=== PATIENT | male | born 1970 | race Caucasian/White ===

== ENCOUNTER 2018-02-08 18:45 | Emergency (ER) | payer MEDICAID ==
[~2018-02-08] VITALS: Ht 177.8 cm; Wt 83.0 kg
[~2018-02-08 18:45] MED LIST: CITA-278 PO; CLA10T PO; DIPH-681 PO; FLUT16SP2 NS; HYDR-569 PO; HYDR20OI TP; IBUP-1051 PO; IBUP-1984 PO; LANS15CA10 PO; NORCO10T PO; OMEP20CA10 PO; PRED10TA PO; ZOLP5TAB8 PO
[2018-02-08 18:55] VITALS: BP 127/95
[2018-02-08] MEDS ORDERED: NAPR-56 PO (20:53)
[2018-02-08] MEDS ORDERED: ketorolac tromethamine 15mg/ml inj. IM ONE (20:55)
== END 2018-02-08 21:12 | disposition home or self-care (01) ==
LOC: ER 18:45
DX: M72.2 Plantar fascial fibromatosis (principal); K21.9 Gastro-esophageal reflux disease without esophagitis; Z86.19 Personal history of other infectious and parasitic diseases; Z90.49 Acquired absence of other specified parts of digestive tract; Z60.2 Problems related to living alone; Z56.0 Unemployment, unspecified; Z59.0 Homelessness; Z88.8 Allergy status to other drugs, medicaments and biological substances; Z79.899 Other long term (current) drug therapy
CPT/HCPCS: 96372; 99283; J1885

== ENCOUNTER 2018-02-16 14:19 | Emergency (ER) | payer MEDICAID ==
[~2018-02-16] VITALS: Ht 604 cm; Wt 84.0 kg
[~2018-02-16 14:19] MED LIST changes: +NAPR-56 PO
[2018-02-16] MEDS ORDERED: sucralfate 1gm/10ml UD suspension PO STA (14:24)
[2018-02-16] MEDS ORDERED: LIDOcaine Viscous 15ml cup PO ONE (14:25)
[2018-02-16] MEDS ORDERED: normal saline 1000ML IV soln IVB ONE (14:25)
[2018-02-16] MEDS ORDERED: mag hydrox/Alum hydrox/simeth 30ml oral suspension PO ONE (14:25)
[2018-02-16] MEDS ORDERED: ondansetron/PF 4mg/2ml inj IV ONE (14:25)
[2018-02-16 14:48] LABS: BASOPHILS # (AUTO) 0.1 X10'3 (0-0.2); BASOPHILS % (AUTO) 0.7 % (0-1); EOSINOPHILS # (AUTO) 0.3 X10'3 (0-0.9); EOSINOPHILS % (AUTO) 3.7 % (0-6); HEMATOCRIT 46.3 % (42.0-52.0); HEMOGLOBIN 15.4 g/dl (14.0-17.9); LYMPHOCYTES # (AUTO) 2.1 X10'3 (1.1-4.8); MEAN CORPUSCULAR HEMOGLOBIN 29.2 PG (27.0-31.0); MEAN CORPUSCULAR HGB CONC 33.3 % (33.0-36.5); MEAN CORPUSCULAR VOLUME 87.6 FL (78-98); MEAN PLATELET VOLUME 9.5 FL (7.4-10.4); MONOCYTES # (AUTO) 0.5 X10'3 (0-0.9); MONOCYTES % (AUTO) 6.6 % (2-12); NEUTROPHILS # (AUTO) 4.5 X10'3 (1.8-7.7); PLATELET COUNT 236 X10'3 (140-440); RED BLOOD COUNT 5.28 X10'6 (4.70-6.10); WHITE BLOOD COUNT 7.5 X10'3 (4.5-11.0)
[2018-02-16 14:58] LABS: ALANINE AMINOTRANSFERASE 40 U/L (12-78); ALBUMIN 3.6 G/DL (3.4-5.0); ALBUMIN/GLOBULIN RATIO 1.1 (1.1-1.5); ALKALINE PHOSPHATASE 91 IU/L (46-116); ANION GAP 8 (8-16); ASPARTATE AMINO TRANSFERASE 23 U/L (10-37); BILIRUBIN,TOTAL 0.2 MG/DL (0.1-1.0); BLOOD UREA NITROGEN 17 MG/DL (7-18); BUN/CREATININE RATIO 17.9 (5.4-32.0); CALCIUM 9.1 MG/DL (8.5-10.1); CHLORIDE 106 MMOL/L (99-107); CREATININE 0.95 MG/DL (0.60-1.10); GLUCOSE 117 MG/DL (70-104); POTASSIUM 3.7 MMOL/L (3.5-5.1); SODIUM 140 MMOL/L (135-145); eGFR 84 ML/MIN
[2018-02-16 15:01] LABS: LIPASE 330 U/L (73-393); TROPONIN I < 0.04 NG/ML (0.0-0.05)
[2018-02-16] MEDS ORDERED: SUCR1TAB34 PO (15:23)
[2018-02-16] MEDS ORDERED: ONDA4TAB6 PO (15:23)
[2018-02-16] MEDS ORDERED: proCHLORperazine 10 MG/2 ml inj IV ONE (15:30)
[2018-02-16 16:03] VITALS: BP 132/85
== END 2018-02-16 16:05 | disposition home or self-care (01) ==
LOC: ER 14:20
DX: R10.13 Epigastric pain (principal); R11.2 Nausea with vomiting, unspecified; K21.9 Gastro-esophageal reflux disease without esophagitis; Z59.0 Homelessness; Z56.0 Unemployment, unspecified; Z90.49 Acquired absence of other specified parts of digestive tract; Z79.899 Other long term (current) drug therapy; Z88.6 Allergy status to analgesic agent; Z88.8 Allergy status to other drugs, medicaments and biological substances
CPT/HCPCS: 36415; 71045; 80053; 83690; 84484; 85025; 93005; 96361; 96374; 96375; 99285; A6257; J0780; J2405; J7030

== ENCOUNTER 2019-03-26 16:58 | Emergency (ER) | payer MEDICAID ==
[~2019-03-26] VITALS: Ht 177.8 cm; Wt 81.8 kg
[~2019-03-26 16:58] MED LIST changes: -CITA-278 PO; +CITA20TA28 PO; +HYDR-4383 PO; -HYDR-569 PO; -NAPR-56 PO; -OMEP20CA10 PO; +OMEP20CA11 PO; +ONDA4TAB6 PO; +SUCR1TAB34 PO
[2019-03-26] MEDS ORDERED: ondansetron/PF 4mg/2ml inj IV ONE (17:55)
[2019-03-26] MEDS ORDERED: normal saline 1000ML IV soln IVB ONE (17:55)
[2019-03-26 18:33] LABS: BASOPHILS # (AUTO) 0.1 X10'3 (0-0.2); BASOPHILS % (AUTO) 0.9 % (0-1); EOSINOPHILS # (AUTO) 0.2 X10'3 (0-0.9); HEMATOCRIT 42.1 % (42.0-52.0); HEMOGLOBIN 14.4 g/dl (14.0-17.9); LYMPHOCYTES # (AUTO) 2.6 X10'3 (1.1-4.8); LYMPHOCYTES % (AUTO) 30.8 % (21-51); MEAN CORPUSCULAR HEMOGLOBIN 29.2 PG (27.0-31.0); MEAN CORPUSCULAR HGB CONC 34.2 g/dL (33.0-36.5); MEAN CORPUSCULAR VOLUME 85.4 FL (78-98); MEAN PLATELET VOLUME 8.6 FL (7.4-10.4); MONOCYTES # (AUTO) 0.7 X10'3 (0-0.9); MONOCYTES % (AUTO) 8.1 % (2-12); NEUTROPHILS # (AUTO) 4.8 X10'3 (1.8-7.7); NEUTROPHILS % (AUTO) 57.2 % (42-75); PLATELET COUNT 269 X10'3 (140-440); RED BLOOD COUNT 4.93 X10'6 (4.70-6.10); RED CELL DISTRIBUTION WIDTH 13.2 % (11.5-14.5); WHITE BLOOD COUNT 8.3 X10'3 (4.5-11.0)
[2019-03-26 18:40] LABS: ALANINE AMINOTRANSFERASE 53 U/L (12-78); ALBUMIN 4.1 G/DL (3.4-5.0); ALBUMIN/GLOBULIN RATIO 1.2 (1.1-1.5); ALKALINE PHOSPHATASE 77 IU/L (46-116); ANION GAP 12 (8-16); ASPARTATE AMINO TRANSFERASE 40 U/L (10-37); BILIRUBIN,TOTAL 0.5 MG/DL (0.1-1.0); BLOOD UREA NITROGEN 38 MG/DL (7-18); BUN/CREATININE RATIO 24.1 (5.4-32.0); CALCIUM 8.5 MG/DL (8.5-10.1); CHLORIDE 104 MMOL/L (99-107); CREATININE 1.58 MG/DL (0.60-1.10); GLUCOSE 110 MG/DL (70-104); LIPASE 241 U/L (73-393); POTASSIUM 3.8 MMOL/L (3.5-5.1); SODIUM 138 MMOL/L (135-145); TOTAL CARBON DIOXIDE 22.5 MMOL/L (24-32); TOTAL PROTEIN 7.4 G/DL (6.4-8.2); eGFR 46 ML/MIN
[2019-03-26] MEDS ORDERED: ONDA4TAB6 PO (18:45)
[2019-03-26] MEDS ORDERED: METH4TAB3 PO (19:12)
[2019-03-26 19:16] VITALS: BP 134/73
== END 2019-03-26 19:17 | disposition home or self-care (01) ==
LOC: ER 16:59
DX: T67.5XXA Heat exhaustion, unspecified, initial encounter (principal); N28.9 Disorder of kidney and ureter, unspecified; L23.7 Allergic contact dermatitis due to plants, except food; R11.2 Nausea with vomiting, unspecified; K21.9 Gastro-esophageal reflux disease without esophagitis; Z86.19 Personal history of other infectious and parasitic diseases; Z90.49 Acquired absence of other specified parts of digestive tract; Z60.2 Problems related to living alone; Z59.0 Homelessness; Z56.0 Unemployment, unspecified; Z88.8 Allergy status to other drugs, medicaments and biological substances; Z79.899 Other long term (current) drug therapy; X58.XXXA Exposure to other specified factors, initial encounter; Y93.89 Activity, other specified; Y92.89 Other specified places as the place of occurrence of the external cause; Y99.8 Other external cause status
CPT/HCPCS: 36415; 80053; 83690; 85025; 96361; 96374; 99283; J2405; J7030

== ENCOUNTER 2019-05-29 19:39 | Emergency (ER) | payer MEDICAID ==
[~2019-05-29] VITALS: Ht 180.3 cm; Wt 67.8 kg
[~2019-05-29 19:39] MED LIST changes: +METH4TAB3 PO
[2019-05-29 19:48] VITALS: BP 145/77
[2019-05-29] MEDS ORDERED: SULF1TAB49 PO (20:40)
== END 2019-05-29 20:49 | disposition home or self-care (01) ==
LOC: ER 19:39
DX: L02.414 Cutaneous abscess of left upper limb (principal); L02.412 Cutaneous abscess of left axilla; K21.9 Gastro-esophageal reflux disease without esophagitis; Z86.19 Personal history of other infectious and parasitic diseases; Z90.49 Acquired absence of other specified parts of digestive tract; Z60.2 Problems related to living alone; Z59.0 Homelessness; Z56.0 Unemployment, unspecified; Z88.8 Allergy status to other drugs, medicaments and biological substances; Z79.899 Other long term (current) drug therapy
CPT/HCPCS: 99283

== ENCOUNTER 2019-06-03 22:14 | Emergency (ER) | payer MEDICAID ==
[~2019-06-03] VITALS: Ht 180.3 cm; Wt 79.0 kg
[~2019-06-03 22:14] MED LIST changes: +SULF1TAB49 PO
[2019-06-03 22:20] VITALS: BP 133/81
== END 2019-06-04 00:10 | disposition home or self-care (01) ==
LOC: ER 22:15
DX: L02.412 Cutaneous abscess of left axilla (principal); K21.9 Gastro-esophageal reflux disease without esophagitis; Z88.8 Allergy status to other drugs, medicaments and biological substances; Z79.899 Other long term (current) drug therapy; Z79.2 Long term (current) use of antibiotics; Z79.1 Long term (current) use of non-steroidal anti-inflammatories (NSAID); Z86.14 Personal history of Methicillin resistant Staphylococcus aureus infection; Z60.2 Problems related to living alone; Z56.0 Unemployment, unspecified; Z59.0 Homelessness; Z90.49 Acquired absence of other specified parts of digestive tract; Z86.19 Personal history of other infectious and parasitic diseases
CPT/HCPCS: 99281

== ENCOUNTER 2020-02-12 06:03 | Emergency (ER) | payer MEDICAID ==
[~2020-02-12] VITALS: Ht 170.2 cm; Wt 82.7 kg
[~2020-02-12 06:03] MED LIST changes: -OMEP20CA11 PO; +OMEP20CA15 PO; -SULF1TAB49 PO
[2020-02-12 06:08] VITALS: BP 149/89
[2020-02-12] MEDS ORDERED: CEPH-572 PO (06:25)
[2020-02-12] MEDS ORDERED: acetaminophen 325mg tablet PO ONE (06:25)
[2020-02-12] MEDS ORDERED: TETanus/Pertussis (Acell)/Diphther VAC/PF (Tdap-Adult) 0.5ml syringe IMVAC ONE (06:25)
[2020-02-12] MEDS ORDERED: cephalexin 250mg capsule PO ONE (06:25)
[2020-02-12] MEDS ORDERED: bacitracin 15gm ointment TP ONE (06:44)
== END 2020-02-12 07:07 | disposition home or self-care (01) ==
LOC: ER 06:05
DX: S51.832A Puncture wound without foreign body of left forearm, initial encounter (principal); K21.9 Gastro-esophageal reflux disease without esophagitis; Z86.19 Personal history of other infectious and parasitic diseases; Z86.14 Personal history of Methicillin resistant Staphylococcus aureus infection; Z90.49 Acquired absence of other specified parts of digestive tract; Z60.2 Problems related to living alone; Z59.0 Homelessness; Z56.0 Unemployment, unspecified; Z88.8 Allergy status to other drugs, medicaments and biological substances; Z79.2 Long term (current) use of antibiotics; Z79.899 Other long term (current) drug therapy; W45.0XXA Nail entering through skin, initial encounter; Y93.89 Activity, other specified; Y92.89 Other specified places as the place of occurrence of the external cause; Y99.8 Other external cause status
CPT/HCPCS: 73110; 90471; 90715; 99284; 99285

== ENCOUNTER 2020-09-27 15:09 | Emergency (ER) | payer MEDICAID ==
[~2020-09-27] VITALS: Ht 180.3 cm; Wt 81.8 kg
[2020-09-27 15:25] VITALS: BP 124/70
== END 2020-09-27 16:55 | disposition left against medical advice (07) ==
LOC: ER 15:10
DX: M79.661 Pain in right lower leg (principal); Z53.21 Procedure and treatment not carried out due to patient leaving prior to being seen by health care provider

== ENCOUNTER 2021-09-28 20:44 | Inpatient (IN) | payer MEDICAID, OTHER ==
[~2021-09-28] VITALS: Ht 180.3 cm; Wt 84.1 kg
[~2021-09-28 20:44] MED LIST changes: -LANS15CA10 PO; +LANS15CA14 PO
[2021-09-28 21:36] LABS: BASOPHILS # (AUTO) 0.1 X10'3 (0-0.2); EOSINOPHILS # (AUTO) 0.2 X10'3 (0-0.9); EOSINOPHILS % (AUTO) 3.1 % (0-6); LYMPHOCYTES # (AUTO) 2.4 X10'3 (1.1-4.8); MEAN CORPUSCULAR HGB CONC 33.8 g/dL (33.0-36.5); MONOCYTES # (AUTO) 0.7 X10'3 (0-0.9); NEUTROPHILS # (AUTO) 3.7 X10'3 (1.8-7.7); PLATELET COUNT 212 X10'3 (140-440); RED CELL DISTRIBUTION WIDTH 13.7 % (11.5-14.5)
[2021-09-28 21:38] LABS: BASOPHILS % (AUTO) 0.8 % (0-1); HEMATOCRIT 44.2 % (42.0-52.0); LYMPHOCYTES % (AUTO) 33.9 % (21-51); MEAN CORPUSCULAR VOLUME 85.7 FL (78-98); MEAN PLATELET VOLUME 8.8 FL (7.4-10.4); MONOCYTES % (AUTO) 9.6 % (2-12); NEUTROPHILS % (AUTO) 52.6 % (42-75); RED BLOOD COUNT 5.16 X10'6 (4.70-6.10)
[2021-09-28 21:42] LABS: ALANINE AMINOTRANSFERASE 39 U/L (12-78); ALBUMIN 3.6 G/DL (3.4-5.0); ALBUMIN/GLOBULIN RATIO 1.2 (1.1-1.5); ALKALINE PHOSPHATASE 91 IU/L (46-116); ANION GAP 6 (8-16); ASPARTATE AMINO TRANSFERASE 26 U/L (10-37); BILIRUBIN,TOTAL 0.4 MG/DL (0.1-1.0); BLOOD UREA NITROGEN 19 MG/DL (7-18); BUN/CREATININE RATIO 15.2 (5.4-32.0); CALCIUM 8.5 MG/DL (8.5-10.1); CHLORIDE 108 MMOL/L (99-107); CREATININE 1.25 MG/DL (0.60-1.10); GLUCOSE 108 MG/DL (70-104); POTASSIUM 3.9 MMOL/L (3.5-5.1); SODIUM 141 MMOL/L (135-145); TOTAL CARBON DIOXIDE 26.7 MMOL/L (24-32); TOTAL PROTEIN 6.7 G/DL (6.4-8.2); eGFR 60 ML/MIN
[2021-09-29 00:34] LABS: D-DIMER < 0.19 MG/L FEU (0-0.50)
--- NOTE | 2021-09-29 02:28 | NUR ---
Pt wanting a cigarette. Offered to get nicotine patch for him. Pt declined. Asked to go outside to smoke or leaving AMA. This RN talked to Dr. Dumont over the situation. Dr instructed to pull IV and let him smoke. IV pulled and Pt went outside. All belongings left at bed side.
[2021-09-29] MEDS ORDERED: magnesium 2GM in 50ml NS 50 ML IV PRN (03:05)
[2021-09-29] MEDS ORDERED: acetaminophen 325mg tablet PO PRN (03:05)
[2021-09-29] MEDS ORDERED: potassium Cl 20 mEq SR tablet PO PRN ×2 (03:05)
[2021-09-29] MEDS ORDERED: morphine 2 MG/ML inj. syringe IV PRN (03:05)
[2021-09-29] MEDS ORDERED: potassium CL 10mEq/100ml bag 100 ML IV PRN (03:05)
[2021-09-29] MEDS ORDERED: magnesium 4gm in 100ml NS 100 ML IV PRN (03:05)
[2021-09-29] MEDS ORDERED: magnesium Cl slow-release 64mg tablet PO PRN (03:05)
[2021-09-29] MEDS ORDERED: ondansetron/PF 4mg/2ml inj IV PRN (03:05)
[2021-09-29 03:50] LABS: MAGNESIUM 1.9 MG/DL (1.5-2.4); POTASSIUM 4.1 MMOL/L (3.5-5.1)
[2021-09-29] MEDS ORDERED: ONDA8TAB13 PO (04:11)
[2021-09-29] MEDS ORDERED: metoprolol tartrate 1mg/ml inj IV PRN (05:50)
[2021-09-29] MEDS ORDERED: nitroGLYCERIN 0.4mg SUBLingual tab SL PRN (05:50)
[2021-09-29] MEDS ORDERED: regadenoson 0.4mg/5ml syringe IV PRN (05:50)
[2021-09-29] MEDS ORDERED: aminophylline 250mg/10ml inj. IV PRN (05:50)
[2021-09-29 06:37] VITALS: BP 121/78
--- NOTE | 2021-09-29 06:40 | NUR ---
Pt sitting up to EOB. Asking to go outside to smoke a cigarette, offered nicotine patch but pt declined.
--- NOTE | 2021-09-29 07:29 | NUR ---
Pt unable to go to [facility] for Lexiscan as his IV was pulled overnight for him to go outside to smoke and also drank [place] prior to my arrival.
[2021-09-29] MEDS ORDERED: heparin, porcine 5000 units/ml vial SQ SCH (08:00)
[2021-09-29] MEDS ORDERED: K and/or MAG REPLACEMENT MC SCH (08:00)
--- NOTE | 2021-09-29 08:21 | NUR ---
Pt states he does not want to be admitted to the hospital. States he will follow up with his primary doctor for an outpt lexiscan "if he feels like he needs it." Notified Dr. Flores of pt's desire to leave AMA, she states "we cannot keep him here if he doesn't want to stay." Educated pt regarding risks of leaving AMA including as pt is unwilling to wait. Pt verbalizes understanding.
== END 2021-09-29 08:30 | disposition left against medical advice (07) | DRG 198 ==
LOC: ER 20:45 → UNDOADMIN 09-29 03:01 → ED HOLD 09-29 03:01 → UNDODISIN 09-29 08:30
PROVIDERS: ADMIT Internal Medicine; ATTEND Internal Medicine
DX: I24.9 Acute ischemic heart disease, unspecified (principal); B18.2 Chronic viral hepatitis C; Z53.29 Procedure and treatment not carried out because of patient's decision for other reasons; Z60.2 Problems related to living alone; F17.210 Nicotine dependence, cigarettes, uncomplicated; G47.00 Insomnia, unspecified; F32.A Depression, unspecified; K21.9 Gastro-esophageal reflux disease without esophagitis; Z59.00 Homelessness unspecified; Z90.49 Acquired absence of other specified parts of digestive tract; Z56.0 Unemployment, unspecified; Z88.8 Allergy status to other drugs, medicaments and biological substances; Z79.899 Other long term (current) drug therapy
CPT/HCPCS: 36415; 71045; 80053; 83735; 83880; 84132; 84484; 85025; 85379; 93005; 99285; G0378

== ENCOUNTER 2021-09-29 17:04 | Emergency (ER) | payer MEDICAID ==
[~2021-09-29] VITALS: Ht 180.3 cm; Wt 84.1 kg
[~2021-09-29 17:04] MED LIST changes: +ONDA8TAB13 PO
[2021-09-29 18:21] LABS: BASOPHILS % (AUTO) 0.7 % (0-1); EOSINOPHILS # (AUTO) 0.3 X10'3 (0-0.9); EOSINOPHILS % (AUTO) 3.5 % (0-6); HEMOGLOBIN 14.9 g/dl (14.0-17.9); LYMPHOCYTES # (AUTO) 2.5 X10'3 (1.1-4.8); LYMPHOCYTES % (AUTO) 32.2 % (21-51); MEAN CORPUSCULAR HEMOGLOBIN 28.8 PG (27.0-31.0); MEAN CORPUSCULAR HGB CONC 33.8 g/dL (33.0-36.5); MEAN CORPUSCULAR VOLUME 85.5 FL (78-98); MEAN PLATELET VOLUME 8.5 FL (7.4-10.4); MONOCYTES # (AUTO) 0.8 X10'3 (0-0.9); MONOCYTES % (AUTO) 10.6 % (2-12); PLATELET COUNT 220 X10'3 (140-440); RED BLOOD COUNT 5.15 X10'6 (4.70-6.10); RED CELL DISTRIBUTION WIDTH 13.2 % (11.5-14.5); WHITE BLOOD COUNT 7.6 X10'3 (4.5-11.0)
--- NOTE | 2021-09-29 18:24 | NUR ---
ASSUMED CARE OF PT. REQUESTED TECH TO DO EKG. EKG IS CURRENTLY BEING COMPLETED. PT IS CALMLY SITTING ON BED.
[2021-09-29 18:38] LABS: ALANINE AMINOTRANSFERASE 37 U/L (12-78); ALBUMIN 3.7 G/DL (3.4-5.0); ALBUMIN/GLOBULIN RATIO 1.2 (1.1-1.5); ALKALINE PHOSPHATASE 97 IU/L (46-116); ANION GAP 9 (8-16); ASPARTATE AMINO TRANSFERASE 23 U/L (10-37); BILIRUBIN,TOTAL 0.3 MG/DL (0.1-1.0); BLOOD UREA NITROGEN 17 MG/DL (7-18); BUN/CREATININE RATIO 14.9 (5.4-32.0); CALCIUM 8.8 MG/DL (8.5-10.1); CHLORIDE 105 MMOL/L (99-107); CREATININE 1.14 MG/DL (0.60-1.10); GLUCOSE 110 MG/DL (70-104); POTASSIUM 3.8 MMOL/L (3.5-5.1); SODIUM 139 MMOL/L (135-145); TOTAL CARBON DIOXIDE 24.6 MMOL/L (24-32); TOTAL PROTEIN 6.9 G/DL (6.4-8.2); eGFR 67 ML/MIN
[2021-09-29 19:23] VITALS: BP 138/70
== END 2021-09-29 19:25 | disposition home or self-care (01) ==
LOC: ER 17:04
DX: R07.89 Other chest pain (principal); K21.9 Gastro-esophageal reflux disease without esophagitis; F17.200 Nicotine dependence, unspecified, uncomplicated; Z86.19 Personal history of other infectious and parasitic diseases; Z90.49 Acquired absence of other specified parts of digestive tract; Z56.0 Unemployment, unspecified; Z59.00 Homelessness unspecified; Z88.8 Allergy status to other drugs, medicaments and biological substances; Z79.899 Other long term (current) drug therapy
CPT/HCPCS: 36415; 71045; 80053; 83880; 84484; 85025; 93005; 99285

== ENCOUNTER 2022-05-29 19:27 | Emergency (ER) | payer MEDICAID ==
[~2022-05-29] VITALS: Ht 177.8 cm; Wt 77.0 kg
[~2022-05-29 19:27] MED LIST changes: -CITA20TA28 PO; -CLA10T PO; -DIPH-681 PO; -FLUT16SP2 NS; -HYDR-4383 PO; -HYDR20OI TP; -IBUP-1051 PO; -IBUP-1984 PO; -LANS15CA14 PO; -METH4TAB3 PO; -NORCO10T PO; -ONDA4TAB6 PO; -PRED10TA PO; -SUCR1TAB34 PO; -ZOLP5TAB8 PO
[2022-05-29 19:58] LABS: BASOPHILS # (AUTO) 0.1 X10'3 (0-0.2); BASOPHILS % (AUTO) 0.8 % (0-1); EOSINOPHILS # (AUTO) 0.2 X10'3 (0-0.9); EOSINOPHILS % (AUTO) 2.2 % (0-6); HEMATOCRIT 54.2 % (42.0-52.0); LYMPHOCYTES # (AUTO) 3.4 X10'3 (1.1-4.8); LYMPHOCYTES % (AUTO) 32.8 % (21-51); MEAN CORPUSCULAR HEMOGLOBIN 29.7 PG (27.0-31.0); MEAN CORPUSCULAR VOLUME 84.8 FL (78-98); MEAN PLATELET VOLUME 8.2 FL (7.4-10.4); MONOCYTES # (AUTO) 1.1 X10'3 (0-0.9); MONOCYTES % (AUTO) 10.3 % (2-12); NEUTROPHILS # (AUTO) 5.6 X10'3 (1.8-7.7); NEUTROPHILS % (AUTO) 53.9 % (42-75); PLATELET COUNT 296 X10'3 (140-440); RED CELL DISTRIBUTION WIDTH 13.1 % (11.5-14.5); WHITE BLOOD COUNT 10.5 X10'3 (4.5-11.0)
[2022-05-29 20:12] LABS: ALANINE AMINOTRANSFERASE 45 U/L (12-78); ALBUMIN 4.6 G/DL (3.4-5.0); ALBUMIN/GLOBULIN RATIO 1.1 (1.1-1.5); ALKALINE PHOSPHATASE 108 IU/L (46-116); ANION GAP 10 (8-16); ASPARTATE AMINO TRANSFERASE 35 U/L (10-37); BILIRUBIN,TOTAL 0.7 MG/DL (0.1-1.0); BLOOD UREA NITROGEN 37 MG/DL (7-18); BUN/CREATININE RATIO 23.3 (5.4-32.0); CALCIUM 10.1 MG/DL (8.5-10.1); CHLORIDE 99 MMOL/L (99-107); CREATININE 1.59 MG/DL (0.60-1.10); GLUCOSE 98 MG/DL (70-104); LIPASE < 50 U/L (73-393); POTASSIUM 3.8 MMOL/L (3.5-5.1); SODIUM 137 MMOL/L (135-145); TOTAL CARBON DIOXIDE 28.2 MMOL/L (24-32); TOTAL PROTEIN 8.9 G/DL (6.4-8.2); eGFR 46 ML/MIN
[2022-05-29] MEDS ORDERED: normal saline 1000ML IV soln IVB ONE (20:20)
[2022-05-29] MEDS ORDERED: ondansetron 4mg rapidly disintigrating tab PO ONE (20:45)
[2022-05-29 22:41] VITALS: BP 164/87
== END 2022-05-29 22:46 | disposition home or self-care (01) ==
LOC: ER 19:27
DX: R63.0 Anorexia (principal); R11.2 Nausea with vomiting, unspecified; K21.9 Gastro-esophageal reflux disease without esophagitis; Z88.8 Allergy status to other drugs, medicaments and biological substances; Z88.5 Allergy status to narcotic agent; Z91.09 Other allergy status, other than to drugs and biological substances; Z98.890 Other specified postprocedural states; Z56.0 Unemployment, unspecified; Z59.00 Homelessness unspecified
CPT/HCPCS: 36415; 80053; 83690; 85025; 96360; 96361; 99283; J7030

== ENCOUNTER 2022-08-08 13:01 | Emergency (ER) | payer MEDICAID ==
[~2022-08-08] VITALS: Ht 177.8 cm; Wt 75.0 kg
[2022-08-08 13:09] VITALS: BP 118/92
[2022-08-08] MEDS ORDERED: acetaminophen 325mg tablet PO ONE (14:40)
== END 2022-08-08 17:14 | disposition home or self-care (01) ==
LOC: ER 13:02
DX: J06.9 Acute upper respiratory infection, unspecified (principal); Z20.822 Contact with and (suspected) exposure to COVID-19; K21.9 Gastro-esophageal reflux disease without esophagitis; Z86.14 Personal history of Methicillin resistant Staphylococcus aureus infection; Z59.00 Homelessness unspecified; Z56.0 Unemployment, unspecified; Z88.8 Allergy status to other drugs, medicaments and biological substances; Z88.5 Allergy status to narcotic agent; Z79.899 Other long term (current) drug therapy; Z88.6 Allergy status to analgesic agent
CPT/HCPCS: 71045; 87635; 99284; C9803

== ENCOUNTER 2023-02-06 20:38 | Emergency (ER) | payer MEDICAID ==
[~2023-02-06] VITALS: Ht 172.7 cm; Wt 75.0 kg
[2023-02-06 20:44] VITALS: BP 125/73
[2023-02-06 21:29] LABS: BASOPHILS % (AUTO) 0.5 % (0-1); EOSINOPHILS # (AUTO) 0.2 X10'3 (0-0.9); LYMPHOCYTES # (AUTO) 1.9 X10'3 (1.1-4.8); LYMPHOCYTES % (AUTO) 24.4 % (21-51); MEAN CORPUSCULAR HEMOGLOBIN 29.8 PG (27.0-31.0); MEAN CORPUSCULAR VOLUME 87.6 FL (78-98); MEAN PLATELET VOLUME 8.9 FL (7.4-10.4); MONOCYTES # (AUTO) 0.6 X10'3 (0-0.9); MONOCYTES % (AUTO) 7.9 % (2-12); NEUTROPHILS # (AUTO) 5.1 X10'3 (1.8-7.7); NEUTROPHILS % (AUTO) 64.2 % (42-75); PLATELET COUNT 217 X10'3 (140-440); RED BLOOD COUNT 5.37 X10'6 (4.70-6.10); RED CELL DISTRIBUTION WIDTH 13.3 % (11.5-14.5)
[2023-02-06 21:39] LABS: ALANINE AMINOTRANSFERASE 39 U/L (12-78); ALBUMIN 3.8 G/DL (3.4-5.0); ALBUMIN/GLOBULIN RATIO 1.3 (1.1-1.5); ALKALINE PHOSPHATASE 89 IU/L (46-116); ANION GAP 11 (8-16); ASPARTATE AMINO TRANSFERASE 23 U/L (10-37); BILIRUBIN,TOTAL 0.9 MG/DL (0.1-1.0); BLOOD UREA NITROGEN 17 MG/DL (7-18); BUN/CREATININE RATIO 14.8 (10.0-20.0); CALCIUM 8.8 MG/DL (8.5-10.1); CHLORIDE 105 MMOL/L (99-107); CREATININE 1.15 MG/DL (0.60-1.10); GLUCOSE 127 MG/DL (70-104); LIPASE 157 U/L (73-393); POTASSIUM 3.2 MMOL/L (3.5-5.1); SODIUM 141 MMOL/L (135-145); TOTAL CARBON DIOXIDE 25.5 MMOL/L (24-32); TOTAL PROTEIN 6.7 G/DL (6.4-8.2); eGFR 66 ML/MIN
[2023-02-06] MEDS ORDERED: famotidine 10mg tablet PO STA (21:44)
[2023-02-06] MEDS ORDERED: POTASSIUM BICARB 20meq eff tab 20 MEQ TABLET.EFF PO STA (21:44)
[2023-02-06] MEDS ORDERED: ondansetron 4mg rapidly disintigrating tab PO ONE (21:45)
[2023-02-06] MEDS ORDERED: famotidine 20mg tablet PO STA (21:47)
[2023-02-06] MEDS ORDERED: METO-292 PO (21:49)
[2023-02-06] MEDS ORDERED: ONDA4TAB12 PO (21:49)
== END 2023-02-06 22:11 | disposition home or self-care (01) ==
LOC: ER 20:38
DX: K52.9 Noninfective gastroenteritis and colitis, unspecified (principal); E87.6 Hypokalemia; K21.9 Gastro-esophageal reflux disease without esophagitis; F17.200 Nicotine dependence, unspecified, uncomplicated; Z88.8 Allergy status to other drugs, medicaments and biological substances; Z59.00 Homelessness unspecified; Z56.0 Unemployment, unspecified
CPT/HCPCS: 36415; 80053; 83690; 85025; 99283

== ENCOUNTER 2023-06-11 18:53 | Emergency (ER) | payer MEDICAID ==
[~2023-06-11 18:53] MED LIST changes: +METO-292 PO; +ONDA4TAB12 PO
[2023-06-12] MEDS ORDERED: CEPH-585 PO (09:15)
[2023-06-12] MEDS ORDERED: SULF1TAB49 PO (09:15)
[2023-06-12] MEDS ORDERED: NAPR-56 PO (09:15)
== END 2023-06-11 20:54 | disposition left against medical advice (07) ==
LOC: ER 18:55
DX: B99.8 Other infectious disease (principal); Z53.21 Procedure and treatment not carried out due to patient leaving prior to being seen by health care provider

== ENCOUNTER 2023-06-12 05:57 | Emergency (ER) | payer MEDICAID ==
[~2023-06-12] VITALS: Ht 180.3 cm; Wt 72.7 kg
[2023-06-12 06:20] VITALS: BP 145/91; PULSE 92; TEMP 97.7; O2SAT 98
--- NOTE | 2023-06-12 08:55 | NUR ---
I have reviewed and agree with all interventions, assessments performed and documented by ARIE Ruiz.
[2023-06-12] MEDS ORDERED: SULF1TAB49 PO (09:15)
[2023-06-12] MEDS ORDERED: NAPR-56 PO (09:15)
[2023-06-12] MEDS ORDERED: CEPH-585 PO (09:15)
[2023-06-12 09:17] LABS: BASOPHILS # (AUTO) 0.1 X10'3 (0-0.2); BASOPHILS % (AUTO) 0.6 % (0-1); EOSINOPHILS # (AUTO) 0.2 X10'3 (0-0.9); EOSINOPHILS % (AUTO) 1.5 % (0-6); HEMATOCRIT 46.9 % (42.0-52.0); HEMOGLOBIN 15.9 g/dl (14.0-17.9); LYMPHOCYTES % (AUTO) 14.2 % (21-51); MEAN CORPUSCULAR HEMOGLOBIN 29.6 PG (27.0-31.0); MEAN CORPUSCULAR HGB CONC 33.9 g/dL (33.0-36.5); MEAN CORPUSCULAR VOLUME 87.2 FL (78-98); MEAN PLATELET VOLUME 9.2 FL (7.4-10.4); MONOCYTES # (AUTO) 1.5 X10'3 (0-0.9); MONOCYTES % (AUTO) 10.8 % (2-12); NEUTROPHILS # (AUTO) 10.4 X10'3 (1.8-7.7); NEUTROPHILS % (AUTO) 72.9 % (42-75); PLATELET COUNT 252 X10'3 (140-440); RED BLOOD COUNT 5.38 X10'6 (4.70-6.10); RED CELL DISTRIBUTION WIDTH 13.3 % (11.5-14.5); WHITE BLOOD COUNT 14.3 X10'3 (4.5-11.0)
[2023-06-12] MEDS ORDERED: ketorolac trometh inj. 60 MG/2 ML VIAL IM ONE (09:20)
[2023-06-12 09:28] VITALS: RESP 20
[2023-06-12 09:40] LABS: ALANINE AMINOTRANSFERASE 29 U/L (12-78); ALBUMIN 3.9 G/DL (3.4-5.0); ALBUMIN/GLOBULIN RATIO 1.1 (1.1-1.5); ALKALINE PHOSPHATASE 109 IU/L (46-116); ANION GAP 9 (8-16); ASPARTATE AMINO TRANSFERASE 24 U/L (10-37); BILIRUBIN,TOTAL 0.4 MG/DL (0.1-1.0); BLOOD UREA NITROGEN 11 MG/DL (7-18); BUN/CREATININE RATIO 12.1 (10.0-20.0); CALCIUM 9.4 MG/DL (8.5-10.1); CHLORIDE 104 MMOL/L (99-107); CREATININE 0.91 MG/DL (0.60-1.10); GLUCOSE 90 MG/DL (70-104); SODIUM 139 MMOL/L (135-145); TOTAL CARBON DIOXIDE 25.7 MMOL/L (24-32); TOTAL PROTEIN 7.4 G/DL (6.4-8.2); eCRCL 94 ML/MIN; eGFR 86 ML/MIN
[2023-06-12 09:41] LABS: POTASSIUM 3.9 MMOL/L (3.5-5.1)
== END 2023-06-12 10:15 | disposition home or self-care (01) ==
LOC: ER 05:57
DX: L03.011 Cellulitis of right finger (principal); K21.9 Gastro-esophageal reflux disease without esophagitis; Z88.8 Allergy status to other drugs, medicaments and biological substances; Z79.899 Other long term (current) drug therapy; Z98.890 Other specified postprocedural states
CPT/HCPCS: 36415; 80053; 85025; 96372; 99283; J1885

== ENCOUNTER 2023-09-25 16:08 | Emergency (ER) | payer MEDICAID ==
[~2023-09-25] VITALS: Ht 177.8 cm; Wt 77.9 kg
[~2023-09-25 16:08] MED LIST changes: +CEPH-585 PO
[2023-09-25 16:15] VITALS: BP 107/74; PULSE 109; RESP 18; TEMP 98; O2SAT 97
[2023-09-25] MEDS: CefTRIAXone 1000mg IM Kit (w/lidocaine diluent) IM ONE (16:40)
[2023-09-25] MEDS ORDERED: SULF1TAB49 PO (17:00)
[2023-09-25] MEDS ORDERED: CEPH-585 PO (17:00)
== END 2023-09-25 17:22 | disposition home or self-care (01) ==
LOC: ER 16:09
DX: L98.499 Non-pressure chronic ulcer of skin of other sites with unspecified severity (principal); K21.9 Gastro-esophageal reflux disease without esophagitis; Z86.14 Personal history of Methicillin resistant Staphylococcus aureus infection; Z90.49 Acquired absence of other specified parts of digestive tract; Z59.00 Homelessness unspecified; Z56.0 Unemployment, unspecified; Z88.5 Allergy status to narcotic agent; Z88.8 Allergy status to other drugs, medicaments and biological substances; Z79.899 Other long term (current) drug therapy
CPT/HCPCS: 96372; 99283; J0696

== ENCOUNTER 2023-12-13 01:26 | Emergency (ER) | payer MEDICAID ==
[~2023-12-13] VITALS: Ht 177.8 cm; Wt 77.3 kg
[2023-12-13 01:40] VITALS: PULSE 99
[2023-12-13] MEDS: ketorolac trometh. 30mg/ml inj. IM ONE ×2 (02:32→02:33)
[2023-12-13 02:49] VITALS: BP 134/94; RESP 18; TEMP 98; O2SAT 98
== END 2023-12-13 02:51 | disposition home or self-care (01) ==
LOC: ER 01:27
DX: M79.675 Pain in left toe(s) (principal); K21.9 Gastro-esophageal reflux disease without esophagitis; Z88.8 Allergy status to other drugs, medicaments and biological substances; Z79.2 Long term (current) use of antibiotics; Z79.899 Other long term (current) drug therapy; Z98.890 Other specified postprocedural states
CPT/HCPCS: 73620; 96372; 99283; J1885

== ENCOUNTER 2024-02-13 11:54 | Emergency (ER) | payer MEDICAID ==
[~2024-02-13] VITALS: Ht 177.8 cm; Wt 77.3 kg
[~2024-02-13 11:54] MED LIST changes: +ONDA-243 PO; +ONDA-245 PO; -ONDA4TAB12 PO; -ONDA8TAB13 PO
[2024-02-13 13:14] VITALS: BP 130/70; PULSE 74; RESP 14; TEMP 97.8; O2SAT 99
[2024-02-14] MEDS ORDERED: PANT40TA54 PO (16:33)
== END 2024-02-13 13:26 | disposition home or self-care (01) ==
LOC: ER 11:54
DX: S01.81XD Laceration without foreign body of other part of head, subsequent encounter (principal); X58.XXXD Exposure to other specified factors, subsequent encounter; Z88.8 Allergy status to other drugs, medicaments and biological substances; K21.9 Gastro-esophageal reflux disease without esophagitis; G89.29 Other chronic pain; Z90.49 Acquired absence of other specified parts of digestive tract; Z59.00 Homelessness unspecified; Z56.0 Unemployment, unspecified
CPT/HCPCS: 99281

== ENCOUNTER → 2024-02-21 | Day surgery (SDC) | payer MEDICAID ==
[2024-02-14 14:51] LABS: BASOPHILS # (AUTO) 0.1 X10'3 (0-0.2); BASOPHILS % (AUTO) 0.9 % (0-1); EOSINOPHILS # (AUTO) 0.3 X10'3 (0-0.9); EOSINOPHILS % (AUTO) 3.1 % (0-6); LYMPHOCYTES # (AUTO) 3.4 X10'3 (1.1-4.8); LYMPHOCYTES % (AUTO) 32.5 % (21-51); MEAN CORPUSCULAR HEMOGLOBIN 29.3 PG (27.0-31.0); MEAN CORPUSCULAR HGB CONC 34.1 g/dL (33.0-36.5); MEAN CORPUSCULAR VOLUME 85.8 FL (78-98); MEAN PLATELET VOLUME 8.9 FL (7.4-10.4); MONOCYTES # (AUTO) 1.1 X10'3 (0-0.9); MONOCYTES % (AUTO) 10.5 % (2-12); NEUTROPHILS # (AUTO) 5.6 X10'3 (1.8-7.7); PRE OP HEMATOCRIT 46.1 % (42.0-52.0); PRE OP HEMOGLOBIN 15.7 g/dL (14.0-17.9); PRE OP PLATELET COUNT 303 X10'3 (140-440); PRE OP WHITE BLOOD COUNT 10.6 10'3 (4.8-10.8); RED BLOOD COUNT 5.38 X10'6 (4.70-6.10); RED CELL DISTRIBUTION WIDTH 13.7 % (11.5-14.5)
[2024-02-14 18:57] LABS: ALBUMIN 4.5 G/DL (3.4-5.0); BILIRUBIN,TOTAL 0.93 MG/DL (0.1-1.0); CALCIUM 10.6 MG/DL (8.5-10.1); CREATININE 1.64 MG/DL (0.8-1.3); POTASSIUM 3.6 MMOL/L (3.3-5.1); TOTAL PROTEIN 7.8 G/DL (6.4-8.2)
[~2024-02-21] VITALS: Ht 177.8 cm; Wt 77.1 kg
[~2024-02-21] MED LIST changes: -CEPH-585 PO; -METO-292 PO; -OMEP20CA15 PO; -ONDA-243 PO; -ONDA-245 PO; +PANT40TA54 PO; +cefazolin 2gm/D5W 100mL 100 ML IV ONE; +famotidine 20mg tablet PO ONE; +ringers solution, lacted 1,000 ML IV SCH
== END | disposition home or self-care (01) ==
LOC: PAS 05:30
PROVIDERS: ATTEND Podiatrist Foot & Ankle Surgery
DX: S93.421A Sprain of deltoid ligament of right ankle, initial encounter (principal); Z53.8 Procedure and treatment not carried out for other reasons; M25.471 Effusion, right ankle; M19.071 Primary osteoarthritis, right ankle and foot; M25.371 Other instability, right ankle; M76.71 Peroneal tendinitis, right leg; F41.9 Anxiety disorder, unspecified; F32.A Depression, unspecified; I25.2 Old myocardial infarction; Z79.82 Long term (current) use of aspirin; Z79.899 Other long term (current) drug therapy; Z90.49 Acquired absence of other specified parts of digestive tract; Z88.8 Allergy status to other drugs, medicaments and biological substances; X58.XXXA Exposure to other specified factors, initial encounter; Y93.89 Activity, other specified; Y92.89 Other specified places as the place of occurrence of the external cause; Y99.8 Other external cause status
CPT/HCPCS: 36415; 71046; 85025; 93005; J0690; J7120

== ENCOUNTER 2024-04-03 09:27 | Emergency (ER) | payer MEDICAID ==
[~2024-04-03] VITALS: Ht 177.8 cm; Wt 68.2 kg
[~2024-04-03 09:27] MED LIST changes: -cefazolin 2gm/D5W 100mL 100 ML IV ONE; -famotidine 20mg tablet PO ONE; -ringers solution, lacted 1,000 ML IV SCH
[2024-04-03] MEDS ORDERED: SULF1TAB49 PO (10:19)
[2024-04-03] MEDS: bacitracin 15gm ointment TP ONE (10:20)
[2024-04-03] MEDS: TETanus/Pertussis (Acell)/Diphther VAC/PF (Tdap-Adult) 0.5ml syringe IMVAC ONE (10:21)
[2024-04-03 10:26] VITALS: BP 120/76; PULSE 74; RESP 16; TEMP 98.2; O2SAT 97
== END 2024-04-03 10:39 | disposition home or self-care (01) ==
LOC: ER 09:28
DX: L03.116 Cellulitis of left lower limb (principal); K21.9 Gastro-esophageal reflux disease without esophagitis; Z88.8 Allergy status to other drugs, medicaments and biological substances; Z79.899 Other long term (current) drug therapy; Z98.890 Other specified postprocedural states
CPT/HCPCS: 90471; 90715; 99283; A6446; A6449

== ENCOUNTER 2024-04-12 10:19 | Emergency (ER) | payer MEDICAID ==
[~2024-04-12] VITALS: Ht 177.8 cm; Wt 70.0 kg
[2024-04-12] MEDS: famotidine/PF 10 mg/ml inj IV ONE (11:34)
[2024-04-12] MEDS: diphenhydrAMINE 50 mg/ml inj IV ONE ×2 (11:34→12:48)
[2024-04-12] MEDS: methylPREDNISolone sod succ 125mg/2ml vial IV ONE (11:34)
[2024-04-12] MEDS ORDERED: DIPH25CA83 PO (13:11)
[2024-04-12] MEDS ORDERED: PRED20TA PO (13:11)
[2024-04-12] MEDS ORDERED: FAMO-128 PO (13:11)
[2024-04-12 13:20] VITALS: BP 131/78; PULSE 83; RESP 16; TEMP 98.5; O2SAT 98
== END 2024-04-12 13:19 | disposition home or self-care (01) ==
LOC: ER 10:19
DX: L50.8 Other urticaria (principal); T78.2XXA Anaphylactic shock, unspecified, initial encounter; T78.49XA Other allergy, initial encounter; K21.9 Gastro-esophageal reflux disease without esophagitis; Z88.8 Allergy status to other drugs, medicaments and biological substances; Z79.899 Other long term (current) drug therapy; Z98.890 Other specified postprocedural states; X58.XXXA Exposure to other specified factors, initial encounter
CPT/HCPCS: 96374; 96375; 96376; 99285; J1200; J2919; J3490

== ENCOUNTER 2024-05-17 19:11 | Emergency (ER) | payer MEDICAID ==
[~2024-05-17] VITALS: Ht 177.8 cm; Wt 68.2 kg
[~2024-05-17 19:11] MED LIST changes: +DIPH25CA83 PO; +FAMO-128 PO
[2024-05-17] MEDS: loperamide 2mg capsule PO STA (21:48)
[2024-05-17] MEDS: normal saline 1000ml 1,000 ML IV ONE (22:32)
[2024-05-17 22:46] LABS: BASOPHILS # (AUTO) 0.1 X10'3 (0-0.2); BASOPHILS % (AUTO) 0.8 % (0-1); EOSINOPHILS # (AUTO) 0.4 X10'3 (0-0.9); HEMATOCRIT 45.9 % (42.0-52.0); HEMOGLOBIN 15.4 g/dl (14.0-17.9); LYMPHOCYTES # (AUTO) 2.4 X10'3 (1.1-4.8); MEAN CORPUSCULAR HEMOGLOBIN 28.8 PG (27.0-31.0); MEAN CORPUSCULAR HGB CONC 33.6 g/dL (33.0-36.5); MEAN CORPUSCULAR VOLUME 85.7 FL (78-98); MEAN PLATELET VOLUME 8.8 FL (7.4-10.4); MONOCYTES # (AUTO) 0.9 X10'3 (0-0.9); MONOCYTES % (AUTO) 9.9 % (2-12); NEUTROPHILS % (AUTO) 57.3 % (42-75); PLATELET COUNT 303 X10'3 (140-440); RED BLOOD COUNT 5.36 X10'6 (4.70-6.10); RED CELL DISTRIBUTION WIDTH 12.7 % (11.5-14.5); WHITE BLOOD COUNT 8.7 X10'3 (4.5-11.0)
[2024-05-17 22:57] LABS: ALANINE AMINOTRANSFERASE 29 U/L (12-78); ALBUMIN 3.1 G/DL (3.4-5.0); ALBUMIN/GLOBULIN RATIO 0.8 (1.1-1.5); ALKALINE PHOSPHATASE 100 IU/L (46-116); ANION GAP 6 (8-16); ASPARTATE AMINO TRANSFERASE 19 U/L (10-37); BILIRUBIN,TOTAL 0.2 MG/DL (0.1-1.0); BLOOD UREA NITROGEN 14 MG/DL (7-18); BUN/CREATININE RATIO 14.1 (10.0-20.0); CALCIUM 8.9 MG/DL (8.5-10.1); CHLORIDE 103 MMOL/L (99-107); CREATININE 0.99 MG/DL (0.60-1.10); GLUCOSE 101 MG/DL (70-104); POTASSIUM 3.8 MMOL/L (3.5-5.1); SODIUM 139 MMOL/L (135-145); TOTAL CARBON DIOXIDE 30.4 MMOL/L (24-32); TOTAL PROTEIN 6.9 G/DL (6.4-8.2); eCRCL 80 ML/MIN; eGFR 78 ML/MIN
[2024-05-17] MEDS ORDERED: LOPE2TAB25 PO (23:01)
[2024-05-17 23:26] VITALS: BP 120/87; PULSE 65; RESP 15; TEMP 98.2; O2SAT 100
== END 2024-05-17 23:28 | disposition home or self-care (01) ==
LOC: ER 19:12
DX: K52.9 Noninfective gastroenteritis and colitis, unspecified (principal); K21.9 Gastro-esophageal reflux disease without esophagitis; G89.29 Other chronic pain; Z59.00 Homelessness unspecified; Z56.0 Unemployment, unspecified; Z60.2 Problems related to living alone; Z79.899 Other long term (current) drug therapy; Z88.8 Allergy status to other drugs, medicaments and biological substances; Z90.49 Acquired absence of other specified parts of digestive tract
CPT/HCPCS: 36415; 80053; 85025; 96360; 99285; J7030

== ENCOUNTER 2025-07-12 04:42 | Emergency (ER) | payer MEDICAID ==
[~2025-07-12] VITALS: Ht 177.8 cm; Wt 84.0 kg
[~2025-07-12 04:42] MED LIST changes: +LOPE2TAB25 PO
[2025-07-12 04:44] VITALS: TEMP 98.8
--- NOTE | 2025-07-12 05:31 | Physician Documentation ---
History of Present Illness ~ Chief Complaint: Foot pain Stated Complaint: LEG PAIN Time Seen by MD: 05:12 Primary Medical Doctor: nba hamm Mode of Arrival: EMS HPI 55 year old male reports bilateral swollen feet. Unable to say when it started. Denies fever, N/V/D. patient is poor historian. Tetanus witin 5 years: Yes Medication Reconciliation Allergies: Coded Allergies: buspirone (Verified Allergy, Unknown, 05/17/24) clemastine fumarate (Verified Allergy, Unknown, 05/17/24) diphenhydramine HCl (Verified Allergy, Unknown, 05/17/24) menthol (Verified Allergy, Unknown, 05/17/24) phenylpropanolamine (Verified Allergy, Unknown, 05/17/24) phenylpropanolamine HCl (Verified Allergy, Unknown, 05/17/24) pseudoephedrine HCl (Verified Allergy, Unknown, 09/25/23) triamcinolone (Verified Allergy, Unknown, 09/25/23) tripelennamine HCl (Verified Allergy, Unknown, 09/25/23) triprolidine HCl (Verified Allergy, Unknown, 09/25/23) Scheduled Diphenhydramine Hcl (Benadryl), 2 CAP PO HS Famotidine (Pepcid), 1 TAB PO Q12H Loperamide Hcl (Loperamide), 1 TAB PO Q4H Pantoprazole Sodium (Pantoprazole Sodium), 1 TAB PO DAILY, (Reported) Past Medical History Past Medical History: GERD, Hepatitis C, Chronic Pain, MRSA Abscess Past Surgical History: appendectomy Alcohol Use: None Drug Use: none Lives with: Alone Lives In: Homeless Occupation: unemployed Review of Systems All Other Systems at this time: Reviewed and Negative Physical Exam Vital Signs: RN Vital Signs have been reviewed: Yes, Temperature: 98.8, Source: Oral, Heart Rate: 96, Respiratory Rate: 14, BP: 151/88, Pulse Oximetry: 99, Weight: 84.000 Physical Exam Gen: no distress HEENT: PERRL, EOMI Pulm: no distress Cardiac: deferred Abdomen: deferred MSK: no deformity Skin: w/d/i; bilateral shins with patchy warmth and erythema but no induration, no edema. Neuro: nonfocal Psych: unremarkable Progress Results/Orders Results/Orders Orders - AISSATOU GARCIA MD Cbc/Diff (07/12/25 05:11) CMP (07/12/25 05:11) Vital Signs 07/12/25 07/12/25 04:44 04:48 Temp 98.8 Pulse 96 Resp 16 14 B/P (MAP) 151/88 Pulse Ox 99 Medical Decision Making Additional information obtaine: N/A Findings 55 year old male with bilateral lower extremity pain and redness. Awaiting lab results, suspect trench foot. Will sign out to oncoming ER physician for disposition. General Diff Dx:Considerations: Include: Other Knee Diff Dx:Considerations: Include: Other Ankle Diff Dx:Considerations: Include: Other Foot Diff Dx:Considerations: Include: Other Toe Diff Dx:Considerations: Include: Other Departure Disposition: 30 STILL A PATIENT Impression: Primary Impression: Foot pain Condition: Stable Referrals: NO PRIMARY CARE PROVIDER (PCP) Signature Scribe Signature: . Attestation: . AISSATOU GARCIA MD Jul 12, 2025 05:31
--- NOTE | 2025-07-12 06:10 | Physician Documentation ---
Addendum Received patient in sign out from outgoing ED physician, Dr. Carmona. Please see their note (and other providers) for further specific details regarding initial encounter. HPI/Course In Brief: 55 year old male reports bilateral swollen feet. Unable to say when it started. Denies fever, N/V/D. patient is poor historian. No redness or other signs to suggest infection. Laboratory data pending. Laboratory data are reassuring. The appearance of his feet do not suggest an infection/cellulitis. I believe the erythema is due to cold exposure. The patient states that he does have an apartment in which to stay. I am going to discharge him in stable condition. ED COURSE: I Informed the patient of: 1. Nature of abnormal findings 2. Implications of the findings 3. Possible consequences of not receiving additional diagnosis and/or treatment, or following the current treatment plan. 4. Explanation of management options and provision of appropriate referral resources as indicated 5. Their responsibility to receive follow-up care Discussed harm reduction to this emergency department visit today. Patient expresses understanding and agrees to plan. All questions answered to the best of my ability. Discharged in stable condition with strict ED return precautions and close outpatient follow-up with primary care. EMR and Dragon Attestation - this medical document was created using an electronic medical record system with [employer] computerized dictation system. Although this document has been carefully reviewed, there may still be some phonetic and typographical errors. These errors are purely typographical, due to imperfections of the software programs, and do not reflect any compromise in the patient's medical care. Note to Patients: Physician notes are written for the purpose of communication between medical providers and billing purposes. There may be aspects of this documentation that are simplified for efficiency and clarity. Physician notes are not intended to capture the entirety of your experience in the hospital. If you have questions about the way your medical condition and care was documented, please do not hesitate to bring this up at your next visit with your physician. Departure Disposition: HOME / SELF CARE / HOMELESS Impression: Primary Impression: Trench feet Additional Impression Text Mild Condition: Stable Additional Instructions: It is important to see your doctor or primary care provider. Emergency care may be incomplete without proper follow-up. Symptoms sometimes change or new symptoms might arise after you leave the emergency department. It is important that you call your doctor if you become worse in any way, or return to the emergency department. You are strongly urged to follow-up with your physician to assure complete and thorough care. Please call your doctor's office today, and informed them that you were seen in the emergency department, and that you need to be seen immediately for close follow-up. If you do not have a primary care doctor we encourage you to proactively seek a local physician for close follow-up. Consider local clinics, [facility], or local [facility]. Prior to discharge we spoke at length concerning symptoms that would merit reevaluation, but please return to the emergency department for any symptoms that are concerning to you, and we will be happy to continue your evaluation and treatment. Please note you can always return to the emergency department if you are having difficulty coordinating close follow-up. If medications were prescribed, you should fill them at your local pharmacy immediately and take only as prescribed. Bring your new medications to your doctors follow-up visit to discuss any changes that would be necessary. Please check [facility] for any results you did not receive in the Emergency Department: often we are unable to get all your tests back before you leave, and these tests need to be reviewed by your PCP and yourself. You can also call Medical Records if you are unable to access the internet to see [facility]. Return to the emergency department immediately for worsening chest pain, difficulty breathing, sweating, or other concerning emergent symptoms. LUDWIN BELTRAN MD Jul 12, 2025 06:10
[2025-07-12 07:59] LABS: MEAN PLATELET VOLUME 9.2 FL (7.4-10.4); RED CELL DISTRIBUTION WIDTH 13.6 % (11.5-14.5)
[2025-07-12 08:15] LABS: CREATININE 1.12 MG/DL (0.60-1.10); TOTAL CARBON DIOXIDE 26.5 MMOL/L (24-32); eCRCL 75 ML/MIN; eGFR 68 ML/MIN
[2025-07-12] MEDS: potassium Cl 20 mEq SR tablet PO STA (08:29)
[2025-07-12] MEDS: ondansetron 4mg rapidly disintigrating tab PO ONE (10:19)
[2025-07-12 10:29] VITALS: BP 138/87; PULSE 82; RESP 18; O2SAT 99
== END 2025-07-12 10:39 | disposition home or self-care (01) ==
LOC: ER 04:43
DX: T69.021A Immersion foot, right foot, initial encounter (principal); T69.022A Immersion foot, left foot, initial encounter; K21.9 Gastro-esophageal reflux disease without esophagitis; Z88.8 Allergy status to other drugs, medicaments and biological substances; Z90.49 Acquired absence of other specified parts of digestive tract; X31.XXXA Exposure to excessive natural cold, initial encounter; Y93.89 Activity, other specified; Y92.89 Other specified places as the place of occurrence of the external cause; Y99.8 Other external cause status
CPT/HCPCS: 36415; 80053; 85025; 99283